=== PATIENT | female | born 1985 | race Caucasian/White ===

== ENCOUNTER 2017-09-22 12:15 | Emergency (ER) | payer MEDICAID ==
[~2017-09-22] VITALS: Ht 162.6 cm; Wt 121.0 kg
[2017-09-22 12:33] VITALS: BP 128/75
== END 2017-09-22 22:09 | disposition left against medical advice (07) ==
LOC: ER 13:27
DX: R10.9 Unspecified abdominal pain (principal); Z53.21 Procedure and treatment not carried out due to patient leaving prior to being seen by health care provider